=== PATIENT | female | born 1990 | race Caucasian/White ===

== ENCOUNTER → 2016-08-15 | Outpatient (CLI) | payer OTHER ==
--- NOTE | 2016-08-15 09:03 | US ---
Complete Pelvic Ultrasound INDICATION: Routine check for intrauterine IUD. TECHNIQUE: Transabdominal and transvaginal pelvic ultrasound is performed. No priors for comparison. FINDINGS: The uterus measures 7.9 x 3.4 x 4.7 cm. IUD is in good position. Endometrium measures 6.3 m m. No fibroids. Right ovary measures 3.9 x 3 x 3.7 cm. There are two subjacent hypoechoic cystic lesions, the lateral one measuring 2.4 x 2.1 x 2.3 cm, anechoic, the medial one measuring 1.5 x 1.3 x 1.3 cm, also anecho ic. No color Doppler flow in either of these cysts or dominant follicles. Normal surrounding flow is seen in the ovary otherwise. The left ovary measures 2.4 x 2 x 2.4 cm. There are no cysts or masses in the left ovary. Normal colo r flow is seen on the left. IMPRESSION: 1. Good positioning of IUD. 2. Dominant cysts or follicles in the right ovary that are avascular. Follow up ultrasound can be per formed to assure resolution of these. 3. Normal left ovary.
== END ==
LOC: CIMAGING 07:50
PROVIDERS: ATTEND Midwife
DX: Z30.431 Encounter for routine checking of intrauterine contraceptive device (principal); N83.201 Unspecified ovarian cyst, right side
CPT/HCPCS: 76856-PO

== ENCOUNTER → 2016-10-18 | Outpatient (CLI) | payer OTHER | LOC: CIMAGING 12:13 | PROVIDERS: ATTEND Midwife | DX: N83.201 Unspecified ovarian cyst, right side (principal); Z97.5 Presence of (intrauterine) contraceptive device | CPT/HCPCS: 76856-PO ==

== ENCOUNTER → 2017-03-06 | Outpatient (CLI) | payer OTHER | LOC: FIMAGING 13:35 | PROVIDERS: ATTEND Internal Medicine | DX: Z03.89 Encounter for observation for other suspected diseases and conditions ruled out (principal) ==

== ENCOUNTER → 2018-06-25 | Outpatient (CLI) | payer OTHER | LOC: CIMAGING 08:46 | PROVIDERS: ATTEND Obstetrics & Gynecology | DX: N83.201 Unspecified ovarian cyst, right side (principal); Z97.5 Presence of (intrauterine) contraceptive device | CPT/HCPCS: 76856-PO ==